=== PATIENT | female | born 1960 | race Caucasian/White ===

== ENCOUNTER → 2019-12-31 10:36 | Outpatient (BNVA) | payer MEDICARE, SELFPAY | PROVIDERS: Family Provider Nurse Practitioner Family; PCP Nurse Practitioner Family; Visit Provider Emergency Medicine | DX: N39.0 Urinary tract infection, site not specified (principal); R31.9 Hematuria, unspecified; H61.23 Impacted cerumen, bilateral | CPT/HCPCS: 81003 ==

== ENCOUNTER → 2020-10-19 09:25 | Outpatient (BNVA) | payer MEDICARE, SELFPAY | PROVIDERS: Family Provider Nurse Practitioner Family; PCP Nurse Practitioner Family; Visit Provider Emergency Medicine | DX: R30.0 Dysuria (principal); N39.0 Urinary tract infection, site not specified; Z23 Encounter for immunization | CPT/HCPCS: 81000; 87086 ==

== ENCOUNTER → 2021-05-17 10:00 | Outpatient (BNVA) | payer MEDICARE, SELFPAY | PROVIDERS: Family Provider Nurse Practitioner Family; PCP Nurse Practitioner Family; Visit Provider Nurse Practitioner Family | DX: R80.1 Persistent proteinuria, unspecified (principal) | CPT/HCPCS: 84156 ==

== ENCOUNTER → 2021-08-16 10:09 | Outpatient (BNVA) | payer MEDICARE, SELFPAY | PROVIDERS: Family Provider Nurse Practitioner Family; PCP Nurse Practitioner Family; Visit Provider Internal Medicine | DX: N18.32 Chronic kidney disease, stage 3b (principal) | CPT/HCPCS: 81003; 82570; 84156; 85025 ==